=== PATIENT | male | born 1965 | race Two or more races ===

== ENCOUNTER 2017-11-28 19:21 | Emergency (ER) | payer OTHER ==
[2017-11-28 19:29] VITALS: BP 126/85; PULSE 87; TEMP 98.4; BMI 27.1
--- NOTE | 2017-11-28 19:37 | PDOC ---
History of Present Illness - General History Source: Patient, Family Exam Limitations: No Limitations - History of Present Illness Initial Comments: 11/28/17 21:08 Patient is a 52 year old male with a significant past medical history of HTN, prostate, borderline HLD, who presents to the ED with complaints of right knee pain that began x2 days ago. Patient reports experiencing gradually increased right medial knee pain that he states is increased when bending his knee. He reports taking tylenol for the pain yesterday afternoon with minimal relief, prompting him to come into the ED for further evaluation. Denies chest pain, Sob. Denies nausea, vomiting. Denies fevers, chills. Denies contact with sick individuals, out of state travelling. Denies dysuria, hematuria. Denies diarrhea, constipation. Denies head trauma, blurred vision, loss of consciousness. Denies any other symptoms. Allergies: Shrimp Social history: No smoking.No alcohol. No illicit drugs. Surgical history: None PMD: Dr. Jose Maria Gomez. <Roderick Schultz - Last Filed: 11/28/17 21:08> <Ruth Gamble - Last Filed: 11/28/17 21:29> - General Chief Complaint: Pain Stated Complaint: INNER RT KNEE PAIN Past History <Roderick Schultz - Last Filed: 11/28/17 21:08> - Past Medical History COPD: No Disorders: Yes (ENLARGED PROSTATE) HTN: Yes Hypercholesterolemia: Yes - Suicide/Smoking/Psychosocial Hx Smoking History: Never smoked Hx Alcohol Use: No Drug/Substance Use Hx: No Substance Use Type: None <Ruth Gamble - Last Filed: 11/28/17 21:29> - Past Medical History Allergies/Adverse Reactions: Allergies Allergy/AdvReac Type Severity Reaction Status Date / Time No Known Drug Allergies Allergy Verified 11/28/17 19:22 shrimp Allergy Verified 11/28/17 19:22 Home Medications: Ambulatory Orders Amlodipine Besylate 5 mg PO DAILY 11/28/17 Losartan Potassium 25 mg PO DAILY 11/28/17 Simvastatin 20 mg PO DAILY 11/28/17 Tamsulosin HCl 0.4 mg PO DAILY 11/28/17 Review of Systems - Review of Systems Able to Perform ROS?: Yes Comments:: 11/28/17 21:08 GENERAL/CONSTITUTIONAL: No fever or chills. No weakness. HEAD, EYES, EARS, NOSE AND THROAT: No change in vision. No ear pain or discharge. No sore throat. CARDIOVASCULAR: No chest pain or shortness of breath. RESPIRATORY: No cough, wheezing, or hemoptysis. GASTROINTESTINAL: No nausea, vomiting, diarrhea or constipation. GENITOURINARY: No dysuria, frequency, or change in urination. MUSCULOSKELETAL: +Right knee pain. No joint or muscle swelling No neck or back pain. SKIN: No rash NEUROLOGIC: No headache, vertigo, loss of consciousness, or change in strength/ sensation. ENDOCRINE: No increased thirst. No abnormal weight change. HEMATOLOGIC/LYMPHATIC: No anemia, easy bleeding, or history of blood clots. ALLERGIC/IMMUNOLOGIC: No hives or skin allergy. <Roderick Schultz - Last Filed: 11/28/17 21:08> *Physical Exam - Vital Signs Last Vital Signs Temp Pulse Resp BP Pulse Ox 98.4 F 87 16 126/85 96 11/28/17 19:25 11/28/17 19:25 11/28/17 19:25 11/28/17 19:25 11/28/17 19:25 - Physical Exam Comments: 11/28/17 21:08 GENERAL: Awake, alert, and fully oriented, in no acute distress HEAD: No signs of trauma EYES: PERRLA, EOMI, sclera anicteric, conjunctiva clear ENT: Auricles normal inspection, hearing grossly normal, nares patent, oropharynx clear without exudates. Moist mucosa NECK: Normal ROM, supple, no lymphadenopathy, JVD, or masses LUNGS: Breath sounds equal, clear to auscultation bilaterally. No wheezes, and no crackles HEART: Regular rate and rhythm, normal S1 and S2, no murmurs, rubs or gallops ABDOMEN: Soft, nontender, normoactive bowel sounds. No guarding, no rebound. No masses EXTREMITIES: +Varius pressure pain. +Anterior and posterior drawer test negative . +Pain with bending beyond 50 degrees. +Tenderness at medial aspect. No tenderness over patella. No bollament. No pain with valgus pressure. No injury to knee No clubbing or cyanosis. No cords, erythema, NEUROLOGICAL: Cranial nerves II through XII grossly intact. Normal speech, normal gait SKIN: Warm, Dry, normal turgor, no rashes or lesions noted. <Roderick Schultz - Last Filed: 11/28/17 21:08> - Vital Signs Last Vital Signs Temp Pulse Resp BP Pulse Ox 98.4 F 87 16 126/85 96 11/28/17 19:25 11/28/17 19:25 11/28/17 19:25 11/28/17 19:25 11/28/17 19:25 <Ruth Gamble - Last Filed: 11/28/17 21:29> ED Treatment Course - Medications Given in the ED: ED Medications Discontinued Medications Generic Name Dose Route Start Last Admin Trade Name Dora PRN Reason Stop Dose Admin Acetaminophen 1,000 mg 11/28/17 20:22 11/28/17 20:31 Tylenol - PO 11/28/17 20:23 1,000 mg ONCE ONE Administration <Roderick Schultz - Last Filed: 11/28/17 21:08> Medical Decision Making - Medical Decision Making 11/28/17 21:26 Pt has medial meniscus pain. Normal medial lateral ligaments and ACL PCL. Pt has mild swelling in the knee. Medial meniscus degeneration likely due to wear and tear. 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 Normally he strolls out of his taxi throughout his work day. Lately he has remianed seated in his car. He omes with giovani wrap and salon pas. I recommended NSAIDS with meals and f/u with ortho for eval and MRI as needed. Rest and ice and quadriceps exercises. Stable to go home. XR knee normal. <Ruth Gamble - Last Filed: 11/28/17 21:29> *DC/Admit/Observation/Transfer - Attestations Scribe Attestion: 11/28/17 21:08 Documentation prepared by Roderick Schultz, acting as medical insurance claims specialist for Ruth Gamble MD. <Roderick Schultz - Last Filed: 11/28/17 21:08> - Discharge Dispostion Decision to Admit order: No <Ruth Gamble - Last Filed: 11/28/17 21:29> Diagnosis at time of Disposition: Degeneration disease of medial meniscus - Discharge Dispostion Disposition: HOME Condition at time of disposition: Stable - Referrals Referrals: Jose Maria Gomez [Primary Care Provider] - Aguilar Soria MD [Staff Physician] - Savage Oneill MD [Staff Physician] - - Patient Instructions Printed Discharge Instructions: DI for Meniscal Tear, DI for Knee Pain, Certain Exercises May Help People with Knee Osteoarthritis, How to Apply an Elastic Wrap on Knee - Post Discharge Activity
[2017-11-28] MEDS ORDERED: ACETAMINOPHEN 500 MG TABLET (FP) PO ONE (20:22)
[2017-11-28] MEDS ORDERED: ACETAMINOPHEN 500 MG TABLET (FP) ONE (20:30)
== END 2017-11-28 20:59 | disposition home or self-care (01) ==
LOC: FER 19:21
DX: M23.303 Other meniscus derangements, unspecified medial meniscus, right knee (principal); N40.0 Benign prostatic hyperplasia without lower urinary tract symptoms; I10 Essential (primary) hypertension; E78.00 Pure hypercholesterolemia, unspecified
CPT/HCPCS: 73560-TC-RT-FY; 99282-25

== ENCOUNTER 2019-05-27 11:43 | Inpatient (IN) | payer OTHER ==
[2019-05-27 11:54] VITALS: BMI 28.7
--- NOTE | 2019-05-27 12:15 | PDOC ---
History of Present Illness - General Chief Complaint: Urinary Problem Stated Complaint: UTI Time Seen by Provider: 05/27/19 12:14 History Source: Patient Exam Limitations: No Limitations - History of Present Illness Initial Comments: 05/27/19 12:14 PCP: Dr. Jose Maria Gomez HPI: 54yo M PMH HTN, BPH, presenting with urinary incontinence for 2 days. Patient reports history of multiple UTIs in the past, most recently 2 months ago. These generally present with urinary incontinence and resolve after antibiotics from PCP. Presented to urgent care yesterday, was told to present immediately to the ER. Multiple sick contacts in the home with suspected influenza. Patient also with fevers, chills, nauseous over the past 2 days. Reports vomiting twice yesterday. Denies pain with urination, denies gross blood or foul smell. no pain. Endorses prior colonoscopy and some procedure per rectum that he cannot name. Endorses diarrhea since yesterday with multiple loose/soft BMs, denies blood or dark color. Nonproductive cough. No trauma, no back pain, no rectal pain, no numbness / tingling / weakness in LE. Took Advil two days ago, no Tylenol, nothing today. Denies chest pain, Sob. Denies out of state travelling. Denies dysuria, hematuria. Denies constipation. Denies head trauma, blurred vision, loss of consciousness. Denies any other symptoms. ALL: Shrimp PMH: Denies PSH: None SHx: No smoking.No alcohol. No illicit drugs. Past History - Travel Traveled outside of the country in the last 30 days: No Close contact w/someone who was outside of country & ill: No - Past Medical History Allergies/Adverse Reactions: Allergies Allergy/AdvReac Type Severity Reaction Status Date / Time No Known Drug Allergies Allergy Verified 05/27/19 11:54 shrimp Allergy Verified 05/27/19 11:54 Home Medications: Ambulatory Orders Amlodipine Besylate 5 mg PO DAILY 11/28/17 Losartan Potassium 25 mg PO DAILY 11/28/17 Simvastatin 20 mg PO DAILY 11/28/17 Tamsulosin HCl 0.4 mg PO DAILY 11/28/17 COPD: No Disorders: Yes (ENLARGED PROSTATE) HTN: Yes Hypercholesterolemia: Yes - Psycho Social/Smoking Cessation Hx Smoking History: Never smoked Hx Alcohol Use: No Drug/Substance Use Hx: No Substance Use Type: None Review of Systems - Review of Systems Able to Perform ROS?: Yes Is the patient limited Nepalese proficient: Yes Constitutional: Yes: Chills, Fever. No: Diaphoresis, Weakness HEENTM: No: Nose Congestion, Throat Pain Respiratory: Yes: Cough. No: Orthopnea, Shortness of Breath, Wheezing, Productive cough Cardiac (ROS): No: Chest Pain, Edema, Irregular Heart Rate, Lightheadedness, Palpitations, Syncope, Chest Tightness ABD/GI: Yes: See HPI, Diarrhea, Nausea, Vomiting. No: Constipated, Poor Appetite, Poor Fluid Intake : Yes: Frequency, Urgency. No: Burning, Dysuria, Discharge, Flank Pain, Hematuria, Pain Musculoskeletal: No: Muscle Pain, Muscle Weakness Integumentary: No: Pruritus, Rash Neurological: No: Headache, Numbness, Tingling, Weakness Psychiatric: No: Anxiety, Depression, Stressors, Change in Appetite Endocrine: No: Increased Thirst, Increased Urine Hematologic/Lymphatic: No: Anemia, Blood Clots, Easy Bleeding All Other Systems: Reviewed and Negative *Physical Exam - Vital Signs Last Vital Signs Temp Pulse Resp BP Pulse Ox 103 F H 115 H 16 142/100 100 05/27/19 11:52 05/27/19 11:52 05/27/19 11:52 05/27/19 11:52 05/27/19 11:52 - Physical Exam 05/27/19 13:59 Vitals reviewed, febrile to 103, tachycardia to 110s GEN: Well appearing, appears stated age, NAD, comfortable. AAOx3. HEENT: NCAT, EOMI, PERRL. No facial asymmetry. Moist mucous membranes. Normal voice. Trachea midline. CV: RRR, S1/S2, no murmurs / rubs / gallops appreciated. LUNG: CTAB, normal work of breathing. No wheezes, rales, rhonchi. No cough. Speaking full sentences. GI: Soft, NTND, +BS, no guarding, no rebound. No masses. Neg CVAT b/l. EXTREMITIES: 2+ distal pulses. No LE edema. No obvious deformities of all extremities. SKIN: Warm, dry, no rashes appreciated, non-jaundiced. PSYCH: Normal mood and affect. Cooperative and appropriate. NEURO: CN grossly intact. Moving all extremities well. Normal strength and sensation grossly. ED Treatment Course - LABORATORY CBC & Chemistry Diagram: 05/27/19 12:35 05/27/19 12:35 Medical Decision Making - Medical Decision Making 05/27/19 12:14 54yo M PMH HTN, BPH, presenting with urinary incontinence for 2 days. History notable for prior UTIs with similar presentation. Vitals concerning for fever, tachycardia. DDX: Urosepsis, less likely prostatitis, colitis, superimposed influenza, r/o other septic sources. - Sepsis order set - Influenza Swab - 1g Ofirmev 05/27/19 12:52 - EK, NSR, normla axis, normal intervals, QTc 430, no ST changes 05/27/19 14:00 - Leukocytosis 24.4, CBC / CMP otherwise unremarkable - UA with UTI, trace hematuria - Influenza B positive 05/27/19 14:21 - Call placed to Dr. Gomez, hold 15 minutes, no answer - Ceftriaxone 1g IV for UTI coverage - Tamiflu 75 mg Dispo: Admit Med/Surg for presumed urosepsis Discharge - Discharge Information Problems reviewed: Yes Clinical Impression/Diagnosis: Influenza B Sepsis Qualifiers: Sepsis type: sepsis due to unspecified organism Sepsis acute organ dysfunction status: unspecified Qualified Code(s): A41.9 - Sepsis, unspecified organism UTI (urinary tract infection) Qualifiers: Urinary tract infection type: site unspecified Hematuria presence: with hematuria Qualified Code(s): N39.0 - Urinary tract infection, site not specified Condition: Guarded - Admission Yes - Follow up/Referral Referrals: Jose Maria Gomez [Primary Care Provider] - - Patient Discharge Instructions - Post Discharge Activity
[2019-05-27] MEDS ORDERED: SODIUM CHLORIDE 2,803 ML IV ONE (12:27)
[2019-05-27] MEDS ORDERED: ACETAMINOPHEN 1000 MG/100 ML VIAL (NON FORMULARY) IVPB ONE (12:48)
[2019-05-27 13:03] LABS: VENOUS PC02 45.5 mmHg (38-52); VENOUS PH 7.43 (7.31-7.41)
[2019-05-27 13:04] LABS: BASO % 0.4 % (0-2.0); HEMATOCRIT 43.5 % (35.4-49); HEMOGLOBIN 14.5 GM/dL (11.7-16.9); LYMPH % 8.2 % (8-40); MCH 29.1 pg (25.7-33.7); MCHC 33.4 g/dl (32.0-35.9); MEAN CELL VOLUME 87.3 fl (80-96); MEAN PLT VOLUME 10.1 fl (7.5-11.1); MONO % 10.7 % (3.8-10.2); NEUT % 80.7 % (42.8-82.8); PLATELET COUNT 204 K/MM3 (134-434); RBC 4.98 M/mm3 (4.00-5.60); RDW 13.6 % (11.9-15.9); WHITE BLOOD COUNT 24.4 K/mm3 (4.0-10.0)
[2019-05-27 13:05] LABS: VENOUS PO2 < 49 mmHg (28-48)
[2019-05-27] MEDS ORDERED: ACETAMINOPHEN INJECTION 100 ML IVPB ONE (13:10)
[2019-05-27 13:37] LABS: ALBUMIN 3.5 g/dl (3.4-5.0); ALK PHOS 65 U/L (45-117); ANION GAP 7 MMOL/L (8-16); BILIRUBIN,TOTAL 1.1 mg/dL (0.2-1); CALCIUM 8.3 mg/dL (8.5-10.1); CHLORIDE 100 mmol/L (98-107); CO2 28 mmol/L (21-32); CREATININE 0.9 mg/dL (0.55-1.3); GLUCOSE,RANDOM 121 mg/dL (74-106); POTASSIUM 3.6 mmol/L (3.5-5.1); SGOT/AST 11 U/L (15-37); SGPT/ALT 22 U/L (13-61); SODIUM 134 mmol/L (136-145); TOT PROT 7.5 g/dl (6.4-8.2)
[2019-05-27 13:37] LABS: EPI CELLS 3.5 /HPF (0-5/HPF); HYALINE CASTS 2 /lpf (0-8); PH,URINE >= 9.0 (5.0-8.0); URINE APPEARANCE CLEAR; URINE BACTERIA 1022.8 /hpf (NEGATIVE); URINE BILIRUBIN NEGATIVE (NEGATIVE); URINE COLOR YELLOW; URINE GLUCOSE (UA) NEGATIVE (NEGATIVE); URINE KETONE NEGATIVE (NEGATIVE); URINE LEUK ESTERASE NEGATIVE (NEGATIVE); URINE NITRITE NEGATIVE (NEGATIVE); URINE PROTEIN 3+ (NEGATIVE); URINE RBC 7 /hpf (0-4); URINE WBC 9 /hpf (0-5)
--- NOTE | 2019-05-27 13:54 | PDOC ---
Documentation entered by Terra Markham SCRIBE, acting as scribe for Paxton Sherman MD. Paxton Sherman MD: This documentation has been prepared by the Shahrzad gomez Nirvannie, SCRIBE, under my direction and personally reviewed by me in its entirety. I confirm that the documentation accurately reflects all work, treatment, procedures, and medical decision making performed by me. Attending Attestation - Resident Resident Name: MichaelMike - ED Attending Attestation I have performed the following: I have examined & evaluated the patient, The case was reviewed & discussed with the resident, I agree w/resident's findings & plan, Exceptions are as noted - HPI HPI: 05/27/19 13:16 The patient is a 54 year old male, with a significant past medical history of htn, bph, hld, and multiple UTIs (last 2mo ago) who presents to the emergency department with 2 days of urinary incontinence and loose stool described as multiple loose/soft BMs. He notes associated 2 episodes of emesis yesterday. Patient notes to have been evaluated by urgent care yesterday, at which time he was advised to report to the ED for further evaluation.l Patient does endorse a mild cough that is nonproductive denies any body aches, nasal congestion, sore throat, He does note that multiple people had flulike symptom his family recently. He denies any recent chest pain or shortness of breath. He denies any recent dysuria or hematuria. The patient denies any back pain Allergies: Shrimp. Past surgical history: None reported. Social History: Nonsmoker. Denies EtOH use and recreational drug use. Primary Care Physician: Dr. Jose Maria Gomez - Physicial Exam PE: 05/27/19 13:50 GENERAL: The patient is awake, alert, and fully oriented, Nontoxic - in no acute distress. HEAD: Normocephalic, atraumatic. EYES: extraocular movements intact, sclera anicteric, conjunctiva clear. ENT: Normal voice, Moist mucous membranes. NECK: Normal range of motion, supple LUNGS: Breath sounds equal, clear to auscultation bilaterally. No wheezes, no rhonchi, no rales. HEART: RTachycardic ABDOMEN: Soft, nontender, No guarding, no rebound. No CVA tenderness EXTREMITIES: Normal range of motion, no edema. NEUROLOGICAL: No facial assymetry, Normal speech, Moving all 4 extremities spontaneously and symmetrically PSYCH: Normal mood, normal affect. SKIN: Hot to the touch - Medical Decision Making 05/27/19 12:44 Assessment and plan consider possible UTI vs influenza No associated back pain, trauma I suspect his incontinence may be urge incontinence. Patient noted be febrile tachycardic, sepsis order set was obtained 05/27/19 13:50 Patient's blood work was reviewed noted for leukocytosis cytosis of 24 use a noted for significant amount of bacteria will treat with antibiotics, influenza influenza positive - will treat with tamiflu in lightof leukocyotsis to 24 will admit for further management Heart Score/ECG Review - ECG Impressions Comment:: 05/27/19 13:52 Twelve-lead EKG was performed and reviewed by me. Rate of [address] changes suggestive of acute ischemia Sinus tachycardia
[2019-05-27 14:22] LABS: ANISOCYTOSIS 0; MACROCYTOSIS 0; PLATELET ESTIMATE NORMAL
[2019-05-27] MEDS ORDERED: CEFTRIAXONE 1 GM in DEXTROSE 5%-WATER - 100 ML IVPB ONE (14:23)
[2019-05-27] MEDS ORDERED: OSELTAMIVIR PHOSPHATE 75 MG CAPSULE PO ONE (14:24)
[2019-05-27] MEDS ORDERED: OSELTAMIVIR PHOSPHATE 75 MG CAPSULE ONE ×2 (15:27→22:43)
[2019-05-27] MEDS ORDERED: CEFTRIAXONE 1 GM/50 ML BAG ONE (15:28)
--- NOTE | 2019-05-27 16:11 | HP ---
CHIEF COMPLAINT: fever, chills, nausea/vomiting PCP: Dr. Colon HISTORY OF PRESENT ILLNESS: Patient is a 54 year old male with a significant past medical history of hypertension, BPH who presents to the ED today with urinary frequency for two days, fever, chills and nausea/vomiting. Patient had multiple sick contact at home with fever and chills suspicous for the flu. He went to urgent care and was advised to go to the ED after he reported his symptoms. He denies any pain with urination, denies gross blood or foul smell of his urine. He reports diarrhea that began yesterday with multiple loose stools. He denies any rectal bleed or black stools. He reports a non productive cough and general malaise. In the ED he was having rigors He denies any chest pain, back pain or weakness. He denies hematuria, blurred vision, loss of consciousness. Denies any other symptoms. He was found to be positive for influenza and presents with an elevated WBC of 24.4. Noted to have a + UA. Urine culture and blood cultures are pending. Patient continues to have malaise and rigors. ID has been consulted. ER course was notable for: (1) lactic acid 1.4 (2) wbc 24.4 (3) three episodes of non bili/non bloody vomiting in the ED (4) flu + (5) ceftriaxone 1grm Recent Travel: PAST MEDICAL HISTORY: hypertension, BPH PAST SURGICAL HISTORY: Social History: Smoking: none Alcohol: none Drugs: none Allergies No Known Drug Allergies Allergy (Verified 05/27/19 11:54) shrimp Allergy (Verified 05/27/19 11:54) HOME MEDICATIONS: Home Medications Medication Instructions Recorded Amlodipine Besylate 5 mg PO DAILY 11/28/17 Losartan Potassium 25 mg PO DAILY 11/28/17 Simvastatin 20 mg PO DAILY 11/28/17 Tamsulosin HCl 0.4 mg PO DAILY 11/28/17 REVIEW OF SYSTEMS CONSTITUTIONAL: present: fever, chills, diaphoresis, generalized weakness, malaise, loss of appetite HEENT: Absent: rhinorrhea, nasal congestion, throat pain, throat swelling, difficulty swallowing, mouth swelling, ear pain, eye pain, visual changes CARDIOVASCULAR: Absent: chest pain, syncope, palpitations, irregular heart rate, lightheadedness , peripheral edema RESPIRATORY: present: cough GASTROINTESTINAL: present: nausea, vomiting GENITOURINARY: Absent: dysuria, frequency, urgency, hesitancy, hematuria, flank pain, genital pain MUSCULOSKELETAL: Absent: myalgia, arthralgia, joint swelling, back pain, neck pain SKIN: Absent: rash, itching, pallor HEMATOLOGIC/IMMUNOLOGIC: Absent: easy bleeding, easy bruising, lymphadenopathy, frequent infections ENDOCRINE: Absent: unexplained weight gain, unexplained weight loss, heat intolerance, cold intolerance NEUROLOGIC: Absent: headache, focal weakness or paresthesias, dizziness, unsteady gait, seizure, mental status changes, bladder or bowel incontinence PSYCHIATRIC: Absent: anxiety, depression, suicidal or homicidal ideation, hallucinations. PHYSICAL EXAMINATION Vital Signs - 24 hr 05/27/19 11:52 Temperature 103 F H Pulse Rate 115 H Respiratory 16 Rate Blood Pressure 142/100 O2 Sat by Pulse 100 Oximetry (%) GENERAL: Awake, alert, and fully oriented, with rigors and general malaise. HEAD: Normal with no signs of trauma. EYES: Pupils equal, round and reactive to light, extraocular movements intact, sclera anicteric, conjunctiva clear. No lid lag. EARS, NOSE, THROAT: Ears normal, nares patent, oropharynx clear without exudates. Moist mucous membranes. NECK: Normal range of motion, supple without lymphadenopathy, JVD, or masses. LUNGS: Breath sounds equal, clear to auscultation bilaterally. No wheezes HEART: Regular rate and rhythm, ABDOMEN: Soft, nontender, not distended, normoactive bowel sounds, no guarding, no rebound, no masses. No hepatomegaly or splenomegaly. MUSCULOSKELETAL: Normal range of motion at all joints. No bony deformities or tenderness. No CVA tenderness. UPPER EXTREMITIES: No peripheral edema. LOWER EXTREMITIES: No peripheral edema. NEUROLOGICAL: Normal speech. Normal gait. PSYCHIATRIC: Cooperative. Good eye contact. Appropriate mood and affect. SKIN: Warm, dry, normal turgor, no rashes or lesions noted, normal capillary refill. Laboratory Results - last 24 hr 05/27/19 05/27/19 05/27/19 12:35 12:35 12:35 WBC 24.4 H RBC 4.98 Hgb 14.5 Hct 43.5 MCV 87.3 MCH 29.1 MCHC 33.4 RDW 13.6 Plt Count 204 MPV 10.1 Absolute Neuts (auto) 19.7 H Neutrophils % 80.7 Neutrophils % (Manual) 77.8 Band Neutrophils % 5.0 Lymphocytes % 8.2 Lymphocytes % (Manual) 7.1 L Monocytes % 10.7 H Monocytes % (Manual) 7 Eosinophils % 0.0 Eosinophils % (Manual) 0.0 Basophils % 0.4 Basophils % (Manual) 0.0 Myelocytes % (Man) 0 Promyelocytes % (Man) 0 Blast Cells % (Manual) 0 Nucleated RBC % 0 Metamyelocytes 0 Hypochromia 0 Platelet Estimate Normal Polychromasia 0 Poikilocytosis 0 Anisocytosis 0 Microcytosis 0 Macrocytosis 0 VBG pH POC VBG pCO2 POC VBG pO2 VBG HCO3 VBG O2 Sat ([place]andy) VBG Base Excess Sodium 134 L Potassium 3.6 Chloride 100 Carbon Dioxide 28 Anion Gap 7 L BUN 8.0 Creatinine 0.9 Est GFR (CKD-EPI)AfAm 111.05 Est GFR (CKD-EPI)NonAf 95.81 Random Glucose 121 H Lactic Acid 1.4 Calcium 8.3 L Total Bilirubin 1.1 H AST 11 L ALT 22 Alkaline Phosphatase 65 Troponin I < 0.02 Total Protein 7.5 Albumin 3.5 Urine Color Urine Appearance Urine pH Ur Specific [place] Urine Protein Urine Glucose (UA) Urine Ketones Urine Blood Urine Nitrite Urine Bilirubin Urine Urobilinogen Ur Leukocyte Esterase Urine WBC (Auto) Urine RBC (Auto) Urine Casts (Auto) U Epithel Cells (Auto) Urine Bacteria (Auto) Influenza A (Rapid) Influenza B (Rapid) 05/27/19 05/27/19 05/27/19 12:35 13:06 13:06 WBC RBC Hgb Hct MCV MCH MCHC RDW Plt Count MPV Absolute Neuts (auto) Neutrophils % Neutrophils % (Manual) Band Neutrophils % Lymphocytes % Lymphocytes % (Manual) Monocytes % Monocytes % (Manual) Eosinophils % Eosinophils % (Manual) Basophils % Basophils % (Manual) Myelocytes % (Man) Promyelocytes % (Man) Blast Cells % (Manual) Nucleated RBC % Metamyelocytes Hypochromia Platelet Estimate Polychromasia Poikilocytosis Anisocytosis Microcytosis Macrocytosis VBG pH 7.43 H POC VBG pCO2 45.5 POC VBG pO2 < 49 H VBG HCO3 29.9 H VBG O2 Sat ([place]andy) 78.5 VBG Base Excess 5.2 H Sodium Potassium Chloride Carbon Dioxide Anion Gap BUN Creatinine Est GFR (CKD-EPI)AfAm Est GFR (CKD-EPI)NonAf Random Glucose Lactic Acid Calcium Total Bilirubin AST ALT Alkaline Phosphatase Troponin I Total Protein Albumin Urine Color Yellow Urine Appearance Clear Urine pH >= 9.0 H Ur Specific [place] 1.018 Urine Protein 3+ H Urine Glucose (UA) Negative Urine Ketones Negative Urine Blood Trace Urine Nitrite Negative Urine Bilirubin Negative Urine Urobilinogen 1.0 Ur Leukocyte Esterase Negative Urine WBC (Auto) 9 Urine RBC (Auto) 7 Urine Casts (Auto) 2 U Epithel Cells (Auto) 3.5 Urine Bacteria (Auto) 1022.8 Influenza A (Rapid) Negative Influenza B (Rapid) Positive A ASSESSMENT/PLAN: Problem List - Problem (1) Sepsis Assessment/Plan: patient presents with fever 103, elevated WBC and rigors. His mentation is at baseline. He is having episodes of non bilious non bloody emesis in the ED. Blood and urine cultures collected and pending. Lactic acid within normal limits. Chest xray negative for acute process Also found to have + UA and influenza B positive Start on emperic ceftriaxone pending cultures ID consulted for rigors and elevated WBC Code(s): A41.9 - SEPSIS, UNSPECIFIED ORGANISM Qualifiers: Sepsis type: sepsis due to unspecified organism Sepsis acute organ dysfunction status: unspecified Qualified Code(s): A41.9 - Sepsis, unspecified organism (2) Influenza B Assessment/Plan: started on tamiflu isolation precautions Code(s): J10.1 - FLU DUE TO OTH IDENT INFLUENZA VIRUS W OTH RESP MANIFEST (3) UTI (urinary tract infection) Assessment/Plan: + UA, pending urine cultures on ceftriaxone Code(s): N39.0 - URINARY TRACT INFECTION, SITE NOT SPECIFIED Qualifiers: Urinary tract infection type: site unspecified Hematuria presence: with hematuria Qualified Code(s): N39.0 - Urinary tract infection, site not specified; R31.9 - Hematuria, unspecified (4) Degeneration disease of medial meniscus Code(s): M23.305 - OTHER MENISCUS DERANGEMENTS, UNSP MEDIAL MENISCUS, UNSP KNEE (5) DVT prophylaxis Assessment/Plan: heparin bid full code Code(s): Z29.9 - ENCOUNTER FOR PROPHYLACTIC MEASURES, UNSPECIFIED (6) Prophylactic measure Assessment/Plan: fen ivf @ 100cc/hr until can tolerate meals heparin bid full code Code(s): Z29.9 - ENCOUNTER FOR PROPHYLACTIC MEASURES, UNSPECIFIED Visit type - Emergency Visit Emergency Visit: Yes ED Registration Date: 05/27/19 Care time: The patient presented to the Emergency Department on the above date and was hospitalized for further evaluation of their emergent condition. - New Patient This patient is new to me today: Yes Date on this admission: 05/28/19 - Critical Care Critical Care patient: No
[2019-05-27] MEDS: SODIUM CHLORIDE 1,000 ML IV SCH (16:27)
[2019-05-27] MEDS ORDERED: ONDANSETRON 4 MG/2 ML VIAL IVPUSH PRN (18:18)
[2019-05-27] MEDS: PANTOPRAZOLE SODIUM 40 MG VIAL IVPUSH SCH (18:30)
[2019-05-27] MEDS ORDERED: ACETAMINOPHEN 325 MG TABLET (FP) ONE (22:43)
[2019-05-27] MEDS ORDERED: ATORVASTATIN CA 10 MG TABLET (FP) ONE (22:43)
[2019-05-27] MEDS: OSELTAMIVIR PHOSPHATE 75 MG CAPSULE PO SCH (22:47)
[2019-05-27] MEDS: ACETAMINOPHEN 325 MG TABLET (FP) PO PRN (22:47)
[2019-05-27] MEDS: ATORVASTATIN CA 10 MG TABLET (FP) PO SCH (22:47)
[2019-05-28] MEDS: TAMSULOSIN HCL 0.4 MG CAP PO SCH (08:31)
[2019-05-28] MEDS ORDERED: PATIENT'S OWN MEDICATION (NON-FORMULARY) (Simvastatin [Simvastatin] 20 MG) PO SCH (10:00)
[2019-05-28] MEDS ORDERED: CEFTRIAXONE 1 GM/50 ML BAG ONE (10:16)
[2019-05-28] MEDS: LOSARTAN POTASSIUM 25 MG TABLET PO SCH (10:34)
[2019-05-28] MEDS: CEFTRIAXONE 1 GM in DEXTROSE 5%-WATER - 50 ML IVPB SCH (10:34)
[2019-05-28] MEDS: PANTOPRAZOLE SODIUM 40 MG VIAL IVPUSH SCH (10:34)
[2019-05-28] MEDS: OSELTAMIVIR PHOSPHATE 75 MG CAPSULE PO SCH ×2 (10:34→22:21)
[2019-05-28] MEDS: amLODIPine BESYLATE 5 MG TABLET (FP) PO SCH (10:34)
[2019-05-28 10:44] LABS: HEMATOCRIT 42.7 % (35.4-49); HEMOGLOBIN 14.2 GM/dL (11.7-16.9); MCH 29.5 pg (25.7-33.7); MCHC 33.3 g/dl (32.0-35.9); MEAN CELL VOLUME 88.7 fl (80-96); MEAN PLT VOLUME 9.2 fl (7.5-11.1); PLATELET COUNT 178 K/MM3 (134-434); RBC 4.82 M/mm3 (4.00-5.60); RDW 13.8 % (11.9-15.9)
[2019-05-28 10:58] LABS: INR 1.33 (0.83-1.09); PROTHROMBIN TIME (PATIENT) 15.7 SEC (9.7-13.0)
[2019-05-28 11:08] LABS: BILIRUBIN,TOTAL 1.3 mg/dL (0.2-1); CALCIUM 8.1 mg/dL (8.5-10.1); CREATININE 0.8 mg/dL (0.55-1.3); MAGNESIUM 2.3 mg/dL (1.8-2.4); POTASSIUM 4.1 mmol/L (3.5-5.1); TOT PROT 6.7 g/dl (6.4-8.2)
--- NOTE | 2019-05-28 13:08 | CON.ID ---
Consult - Alcohol/Substance Use Hx Alcohol Use: No - Smoking History Smoking history: Never smoked Home Medications - Allergies Allergies/Adverse Reactions: Allergies Allergy/AdvReac Type Severity Reaction Status Date / Time No Known Drug Allergies Allergy Verified 05/27/19 11:54 shrimp Allergy Verified 05/27/19 11:54 - Home Medications Home Medications: Ambulatory Orders Amlodipine Besylate 5 mg PO DAILY 11/28/17 Losartan Potassium 25 mg PO DAILY 11/28/17 Simvastatin 20 mg PO DAILY 11/28/17 Tamsulosin HCl 0.4 mg PO DAILY 11/28/17 Physical Exam Vital Signs: Vital Signs Temperature 98.7 F 05/28/19 10:57 Pulse Rate 90 05/28/19 10:57 Respiratory Rate 18 05/28/19 10:57 Blood Pressure 144/94 05/28/19 10:57 O2 Sat by Pulse Oximetry (%) 97 05/28/19 07:41 Labs: CBC, BMP 05/28/19 10:34 05/28/19 10:34
[2019-05-28] MEDS: PIPERACILLIN/TAZOB 3.375 GM 3.375 GM in DEXTROSE 5%-WATER - 50 ML IVPB SCH ×2 (13:16→17:26)
[2019-05-28] MEDS ORDERED: PIPERACILLIN/TAZOB 3.375 GM 3.375 GM/50 ML BAG IVPB ONE (13:19)
--- NOTE | 2019-05-28 14:33 | EKG ---
Test Reason : Blood Pressure : / mmHG Vent. Rate : 114 BPM Atrial Rate : 114 BPM P-R Int : 142 ms QRS Dur : 088 ms QT Int : 312 ms P-R-T Axes : 061 -19 033 degrees QTc Int : 430 ms SINUS TACHYCARDIA OTHERWISE NORMAL ECG Confirmed by MD NANETTE, AIDE ([id number]) on 05/28/2019 2:33:24 PM Referred By: Confirmed By:AIDE FITZPATRICK MD
[2019-05-28] MEDS: SODIUM CHLORIDE 1,000 ML IV SCH (16:25)
[2019-05-28] MEDS: ACETAMINOPHEN 325 MG TABLET (FP) PO PRN (16:25)
[2019-05-28] MEDS ORDERED: PIPERACILLIN/TAZOBACTAM 3.375 GM VIAL IVPB ONE ×2 (17:18→17:20)
[2019-05-28] MEDS ORDERED: DEXTROSE 5%-WATER - 50 ML IVPB ONE ×2 (17:18→17:21)
--- NOTE | 2019-05-28 18:10 | PN ---
Physical Exam: SUBJECTIVE: Patient seen and examined at the bedside. Ambulating around room in the ED awaiting bed assignment. He denies any shortness of breath or any further rigors. No vomiting. His brought him food and he tolerated the outside food without vomiting. OBJECTIVE: Patient is a 54 year old male with a significant past medical history of hypertension, BPH who presents to the ED on 05/28/2019 with urinary frequency for two days, fever, chills and nausea/vomiting. Patient had multiple sick contact at home with fever and chills suspicious for the flu. He went to urgent care and was advised to go to the ED after he reported his symptoms. He was found to be positive for influenza and presents with an elevated WBC of 24.4. Noted to have a + UA. Urine culture and blood cultures are pending. He is being admitted for possible urosepsis and +influenza B. Period Temp Pulse Resp BP Sys/Stapleton Pulse Ox Last 24 Hr 98.0 F-98.7 F 88-104 18-18 118-145/71-96 97-98 GENERAL: Awake, alert, and fully oriented, with rigors and general malaise. HEAD: Normal with no signs of trauma. EYES: Pupils equal, round and reactive to light, extraocular movements intact, sclera anicteric, conjunctiva clear. No lid lag. EARS, NOSE, THROAT: Ears normal, nares patent, oropharynx clear without exudates. Moist mucous membranes. NECK: Normal range of motion, supple without lymphadenopathy, JVD, or masses. LUNGS: Breath sounds equal, clear to auscultation bilaterally. No wheezes HEART: Regular rate and rhythm, ABDOMEN: Soft, nontender, not distended, normoactive bowel sounds, no guarding, no rebound, no masses. No hepatomegaly or splenomegaly. MUSCULOSKELETAL: Normal range of motion at all joints. No bony deformities or tenderness. No CVA tenderness. UPPER EXTREMITIES: No peripheral edema. LOWER EXTREMITIES: No peripheral edema. NEUROLOGICAL: Normal speech. Normal gait. PSYCHIATRIC: Cooperative. Good eye contact. Appropriate mood and affect. SKIN: Warm, dry, normal turgor, no rashes or lesions noted, normal capillary refill. Laboratory Results - last 24 hr 05/27/19 05/28/19 05/28/19 20:00 10:34 10:34 WBC 22.0 H RBC 4.82 Hgb 14.2 Hct 42.7 MCV 88.7 MCH 29.5 MCHC 33.3 RDW 13.8 Plt Count 178 MPV 9.2 PT with INR 15.70 H INR 1.33 H Sodium Potassium Chloride Carbon Dioxide Anion Gap BUN Creatinine Est GFR (CKD-EPI)AfAm Est GFR (CKD-EPI)NonAf Random Glucose Lactic Acid 0.8 Calcium Magnesium Total Bilirubin AST ALT Alkaline Phosphatase Total Protein Albumin 05/28/19 10:34 WBC RBC Hgb Hct MCV MCH MCHC RDW Plt Count MPV PT with INR INR Sodium 138 Potassium 4.1 Chloride 104 Carbon Dioxide 30 Anion Gap 4 L BUN 9.0 Creatinine 0.8 Est GFR (CKD-EPI)AfAm 116.56 Est GFR (CKD-EPI)NonAf 100.57 Random Glucose 112 H Lactic Acid Calcium 8.1 L Magnesium 2.3 Total Bilirubin 1.3 H AST 13 L ALT 20 Alkaline Phosphatase 58 Total Protein 6.7 Albumin 3.0 L Active Medications Generic Name Dose Route Start Last Admin Trade Name Freq PRN Reason Stop Dose Admin Acetaminophen 650 mg 05/27/19 16:11 05/28/19 16:25 Tylenol - PO 650 mg Q6H PRN Administration FEVER Amlodipine Besylate 5 mg 05/28/19 10:00 05/28/19 10:34 Norvasc - PO 5 mg DAILY ROSA Administration Atorvastatin Calcium 10 mg 05/27/19 22:00 05/27/19 22:47 Lipitor - PO 10 mg HS ROSA Administration Heparin Sodium (Porcine) 5,000 unit 05/28/19 22:00 Heparin - SQ BID ROSA Ceftriaxone Sodium 1 gm/ 50 mls @ 100 mls/hr 05/28/19 10:00 05/28/19 10:34 Dextrose IVPB 100 mls/hr DAILY ROSA Administration Piperacillin Sod/Tazobactam 50 mls @ 100 mls/hr 05/28/19 13:15 05/28/19 17:26 Sod 3.375 gm/ Dextrose IVPB 100 mls/hr Q8H-IV ROSA Administration Protocol Losartan Potassium 25 mg 05/28/19 10:00 05/28/19 10:34 Cozaar - PO 25 mg DAILY ROSA Administration Ondansetron HCl 4 mg 05/27/19 18:18 05/27/19 18:30 Zofran Injection IVPUSH 4 mg Q6H PRN Administration NAUSEA Oseltamivir Phosphate 75 mg 05/27/19 22:00 05/28/19 10:34 Tamiflu - PO 06/01/19 21:59 75 mg BID ROSA Administration Pantoprazole Sodium 40 mg 05/27/19 18:30 05/28/19 10:34 Protonix Iv IVPUSH 40 mg DAILY ROSA Administration Tamsulosin HCl 0.4 mg 05/28/19 08:30 05/28/19 08:31 Flomax - PO 0.4 mg DAILY@0830 ROSA Administration ASSESSMENT/PLAN: Problem List - Problems (1) Sepsis Assessment/Plan: patient presents with fever 103, elevated WBC and rigors. His mentation is at baseline and his fever curve is now improving. rigors have resolved. Blood and urine cultures collected and pending. Lactic acid within normal limits. Chest xray negative for acute process Also found to have + UA and influenza B positive Seen by ID and started on zosyn pending cultures. Code(s): A41.9 - SEPSIS, UNSPECIFIED ORGANISM Qualifiers: Sepsis type: sepsis due to unspecified organism Sepsis acute organ dysfunction status: unspecified Qualified Code(s): A41.9 - Sepsis, unspecified organism (2) Influenza B Assessment/Plan: started on tamiflu isolation precautions Code(s): J10.1 - FLU DUE TO OTH IDENT INFLUENZA VIRUS W OTH RESP MANIFEST (3) UTI (urinary tract infection) Assessment/Plan: + UA, pending urine cultures on ceftriaxone Code(s): N39.0 - URINARY TRACT INFECTION, SITE NOT SPECIFIED Qualifiers: Urinary tract infection type: site unspecified Hematuria presence: with hematuria Qualified Code(s): N39.0 - Urinary tract infection, site not specified; R31.9 - Hematuria, unspecified (4) Degeneration disease of medial meniscus Code(s): M23.305 - OTHER MENISCUS DERANGEMENTS, UNSP MEDIAL MENISCUS, UNSP KNEE (5) DVT prophylaxis Assessment/Plan: heparin bid full code Code(s): Z29.9 - ENCOUNTER FOR PROPHYLACTIC MEASURES, UNSPECIFIED (6) Prophylactic measure Assessment/Plan: fen low salt diet heparin bid full code Code(s): Z29.9 - ENCOUNTER FOR PROPHYLACTIC MEASURES, UNSPECIFIED Visit type - Emergency Visit Emergency Visit: Yes ED Registration Date: 05/27/19 Care time: The patient presented to the Emergency Department on the above date and was hospitalized for further evaluation of their emergent condition. - New Patient This patient is new to me today: No - Critical Care Critical Care patient: No - Discharge Referral Referred to [facility] No
[2019-05-28] MEDS: ATORVASTATIN CA 10 MG TABLET (FP) PO SCH (22:20)
[2019-05-28] MEDS: HEPARIN NA (PORCINE) 5,000 UNITS/ML 1ML VIAL SQ SCH (22:21)
[2019-05-29] MEDS: OSELTAMIVIR PHOSPHATE 75 MG CAPSULE PO SCH ×3 (00:43→22:09)
[2019-05-29] MEDS ORDERED: PIPERACILLIN/TAZOBACTAM 3.375 GM VIAL IVPB ONE ×3 (02:34→16:29)
[2019-05-29] MEDS ORDERED: DEXTROSE 5%-WATER - 50 ML IVPB ONE ×4 (02:34→16:29)
[2019-05-29] MEDS: PIPERACILLIN/TAZOB 3.375 GM 3.375 GM in DEXTROSE 5%-WATER - 50 ML IVPB SCH ×3 (02:56→16:58)
[2019-05-29] MEDS: ACETAMINOPHEN 325 MG TABLET (FP) PO PRN ×3 (04:24→23:28)
[2019-05-29] MEDS ORDERED: PT OWN MED DRAWER 7, Y5N ONE ×2 (08:23→21:35)
[2019-05-29] MEDS ORDERED: cefTRIAXone SODIUM 1 GM VIAL ONE (08:23)
[2019-05-29] MEDS: TAMSULOSIN HCL 0.4 MG CAP PO SCH (09:06)
[2019-05-29] MEDS: amLODIPine BESYLATE 5 MG TABLET (FP) PO SCH (09:06)
[2019-05-29] MEDS: LOSARTAN POTASSIUM 25 MG TABLET PO SCH (09:06)
[2019-05-29] MEDS: HEPARIN NA (PORCINE) 5,000 UNITS/ML 1ML VIAL SQ SCH ×2 (09:07→22:09)
[2019-05-29] MEDS: CEFTRIAXONE 1 GM in DEXTROSE 5%-WATER - 50 ML IVPB SCH (09:10)
[2019-05-29] MEDS: PANTOPRAZOLE SODIUM 40 MG VIAL IVPUSH SCH (09:10)
--- NOTE | 2019-05-29 10:35 | PN ---
Progress Note, Physician History of Present Illness: still with fevers says dribbling urine - Current Medication List Current Medications: Active Medications Acetaminophen (Tylenol -) 650 mg PO Q6H PRN PRN Reason: FEVER Last Admin: 05/29/19 04:24 Dose: 650 mg Amlodipine Besylate (Norvasc -) 5 mg PO DAILY [facility] Last Admin: 05/29/19 09:06 Dose: 5 mg Atorvastatin Calcium (Lipitor -) 10 mg PO HS [facility] Last Admin: 05/28/19 22:20 Dose: 10 mg Heparin Sodium (Porcine) (Heparin -) 5,000 unit SQ BID [facility] Last Admin: 05/29/19 09:07 Dose: 5,000 unit Ceftriaxone Sodium 1 gm/ (Dextrose) 50 mls @ 100 mls/hr IVPB DAILY [facility] Last Admin: 05/29/19 09:10 Dose: 100 mls/hr Piperacillin Sod/Tazobactam (Sod 3.375 gm/ Dextrose) 50 mls @ 100 mls/hr IVPB Q8H-IV ROSA; Protocol Last Admin: 05/29/19 10:27 Dose: 100 mls/hr Losartan Potassium (Cozaar -) 25 mg PO DAILY [facility] Last Admin: 05/29/19 09:06 Dose: 25 mg Ondansetron HCl (Zofran Injection) 4 mg IVPUSH Q6H PRN PRN Reason: NAUSEA Last Admin: 05/27/19 18:30 Dose: 4 mg Oseltamivir Phosphate (Tamiflu -) 75 mg PO BID [facility] Stop: 06/01/19 21:59 Last Admin: 05/29/19 09:06 Dose: 75 mg Pantoprazole Sodium (Protonix Iv) 40 mg IVPUSH DAILY [facility] Last Admin: 05/29/19 09:10 Dose: 40 mg Tamsulosin HCl (Flomax -) 0.4 mg PO DAILY@0830 [facility] Last Admin: 05/29/19 09:06 Dose: 0.4 mg - Objective Vital Signs: Vital Signs Temperature 97.9 F 05/29/19 07:54 Pulse Rate 98 H 05/29/19 07:54 Respiratory Rate 14 05/29/19 07:54 Blood Pressure 155/95 05/29/19 07:54 O2 Sat by Pulse Oximetry (%) 98 05/28/19 16:58 Constitutional: Yes: Calm, Mild Distress Cardiovascular: Yes: S1, S2 Respiratory: Yes: Regular, CTA Bilaterally Gastrointestinal: Yes: Normal Bowel Sounds, Soft Musculoskeletal: Yes: WNL Extremities: Yes: Other Neurological: Yes: Alert, Oriented Psychiatric: Yes: Alert, Oriented Labs: CBC, BMP 05/28/19 10:34 05/28/19 10:34 INR, PTT INR 1.33 (0.83-1.09) H 05/28/19 10:34 Assessment/Plan Problem List - Problem (1) Sepsis Code(s): A41.9 - SEPSIS, UNSPECIFIED ORGANISM Qualifiers: Sepsis type: sepsis due to unspecified organism Sepsis acute organ dysfunction status: unspecified Qualified Code(s): A41.9 - Sepsis, unspecified organism (2) Influenza B Code(s): J10.1 - FLU DUE TO OTH IDENT INFLUENZA VIRUS W OTH RESP MANIFEST (3) UTI (urinary tract infection) Code(s): N39.0 - URINARY TRACT INFECTION, SITE NOT SPECIFIED Qualifiers: Urinary tract infection type: site unspecified Hematuria presence: with hematuria Qualified Code(s): N39.0 - Urinary tract infection, site not specified; R31.9 - Hematuria, unspecified (4) Degeneration disease of medial meniscus Code(s): M23.305 - OTHER MENISCUS DERANGEMENTS, UNSP MEDIAL MENISCUS, UNSP KNEE (5) DVT prophylaxis Code(s): Z29.9 - ENCOUNTER FOR PROPHYLACTIC MEASURES, UNSPECIFIED (6) Prophylactic measure Code(s): Z29.9 - ENCOUNTER FOR PROPHYLACTIC MEASURES, UNSPECIFIED plan abx consider urology consult close wacth tamiflu hydration rest as per the team
[2019-05-29 12:56] LABS: BASO % 0.3 % (0-2.0); HEMATOCRIT 38.2 % (35.4-49); HEMOGLOBIN 13.1 GM/dL (11.7-16.9); LYMPH % 8.4 % (8-40); MCH 30.3 pg (25.7-33.7); MCHC 34.2 g/dl (32.0-35.9); MEAN CELL VOLUME 88.6 fl (80-96); MEAN PLT VOLUME 9.8 fl (7.5-11.1); NEUT % 79.3 % (42.8-82.8); PLATELET COUNT 176 K/MM3 (134-434); RBC 4.32 M/mm3 (4.00-5.60); RDW 13.7 % (11.9-15.9); WHITE BLOOD COUNT 10.3 K/mm3 (4.0-10.0)
[2019-05-29 13:28] LABS: ALBUMIN 2.8 g/dl (3.4-5.0); BILIRUBIN,TOTAL 0.5 mg/dL (0.2-1); BLOOD UREA NITROGEN 8.2 mg/dL (7-18); CALCIUM 7.8 mg/dL (8.5-10.1); CREATININE 0.8 mg/dL (0.55-1.3); POTASSIUM 3.7 mmol/L (3.5-5.1); TOT PROT 6.7 g/dl (6.4-8.2)
[2019-05-29] MEDS ORDERED: BISACODYL 10 MG SUPP.RECT RC ONE (15:29)
--- NOTE | 2019-05-29 15:30 | PN ---
Physical Exam: SUBJECTIVE: Patient seen and examined at the bedside. states he feels constipated, otherwise, feels well. no further rigors. OBJECTIVE: Patient is a 54 year old male with a significant past medical history of hypertension, BPH who presents to the ED on 05/28/2019 with urinary frequency for two days, fever, chills and nausea/vomiting. Patient had multiple sick contact at home with fever and chills suspicious for the flu. He went to urgent care and was advised to go to the ED after he reported his symptoms. He was found to be positive for influenza and presents with an elevated WBC of 24.4. Noted to have a + UA. He is being admitted for urosepsis and +influenza B. Vital Signs Period Temp Pulse Resp BP Sys/Stapleton Pulse Ox Last 24 Hr 97.9 F-100.1 F 92-106 14-20 128-156/75-98 98-98 GENERAL: Awake, alert, and fully oriented, with rigors and general malaise. HEAD: Normal with no signs of trauma. EYES: Pupils equal, round and reactive to light, extraocular movements intact, sclera anicteric, conjunctiva clear. No lid lag. EARS, NOSE, THROAT: Ears normal, nares patent, oropharynx clear without exudates. Moist mucous membranes. NECK: Normal range of motion, supple without lymphadenopathy, JVD, or masses. LUNGS: Breath sounds equal, clear to auscultation bilaterally. No wheezes HEART: Regular rate and rhythm, ABDOMEN: Soft, nontender, not distended, normoactive bowel sounds, no guarding, no rebound, no masses. No hepatomegaly or splenomegaly. MUSCULOSKELETAL: Normal range of motion at all joints. No bony deformities or tenderness. No CVA tenderness. UPPER EXTREMITIES: No peripheral edema. LOWER EXTREMITIES: No peripheral edema. Laboratory Results - last 24 hr 05/29/19 05/29/19 12:24 12:24 WBC 10.3 H RBC 4.32 Hgb 13.1 Hct 38.2 MCV 88.6 MCH 30.3 MCHC 34.2 RDW 13.7 Plt Count 176 MPV 9.8 Absolute Neuts (auto) 8.2 H Neutrophils % 79.3 Lymphocytes % 8.4 Monocytes % 10.0 Eosinophils % 2.0 D Basophils % 0.3 Nucleated RBC % 0 Sodium 137 Potassium 3.7 Chloride 102 Carbon Dioxide 30 Anion Gap 5 L BUN 8.2 Creatinine 0.8 Est GFR (CKD-EPI)AfAm 116.56 Est GFR (CKD-EPI)NonAf 100.57 Random Glucose 128 H Calcium 7.8 L Total Bilirubin 0.5 AST 49 H ALT 52 Alkaline Phosphatase 64 Total Protein 6.7 Albumin 2.8 L Active Medications Generic Name Dose Route Start Last Admin Trade Name Freq PRN Reason Stop Dose Admin Acetaminophen 650 mg 05/27/19 16:11 05/29/19 04:24 Tylenol - PO 650 mg Q6H PRN Administration FEVER Amlodipine Besylate 5 mg 05/28/19 10:00 05/29/19 09:06 Norvasc - PO 5 mg DAILY ROSA Administration Atorvastatin Calcium 10 mg 05/27/19 22:00 05/28/19 22:20 Lipitor - PO 10 mg HS ROSA Administration Bisacodyl 10 mg 05/29/19 15:29 Dulcolax Suppository - NV 05/29/19 15:30 ONCE ONE Heparin Sodium (Porcine) 5,000 unit 05/28/19 22:00 05/29/19 09:07 Heparin - SQ 5,000 unit BID ROSA Administration Piperacillin Sod/Tazobactam 50 mls @ 100 mls/hr 05/28/19 13:15 05/29/19 10:27 Sod 3.375 gm/ Dextrose IVPB 100 mls/hr Q8H-IV ROSA Administration Protocol Losartan Potassium 25 mg 05/28/19 10:00 05/29/19 09:06 Cozaar - PO 25 mg DAILY ROSA Administration Ondansetron HCl 4 mg 05/27/19 18:18 05/27/19 18:30 Zofran Injection IVPUSH 4 mg Q6H PRN Administration NAUSEA Oseltamivir Phosphate 75 mg 05/27/19 22:00 05/29/19 09:06 Tamiflu - PO 06/01/19 21:59 75 mg BID ROSA Administration Pantoprazole Sodium 40 mg 05/27/19 18:30 05/29/19 09:10 Protonix Iv IVPUSH 40 mg DAILY ROSA Administration Tamsulosin HCl 0.4 mg 05/28/19 08:30 05/29/19 09:06 Flomax - PO 0.4 mg DAILY@0830 ROSA Administration ASSESSMENT/PLAN: Problem List - Problems (1) Sepsis Assessment/Plan: patient presents with fever 103, elevated WBC and rigors. His mentation is at baseline and his fever curve is now improving. rigors have resolved. Blood cultures negative, urine cultures + for ecoli. Lactic acid within normal limits. Chest xray negative for acute process Seen by ID and started on zosyn pending sensitivities. likely switch to oral in am. Code(s): A41.9 - SEPSIS, UNSPECIFIED ORGANISM Qualifiers: Sepsis type: sepsis due to unspecified organism Sepsis acute organ dysfunction status: unspecified Qualified Code(s): A41.9 - Sepsis, unspecified organism (2) Influenza B Assessment/Plan: started on tamiflu isolation precautions Code(s): J10.1 - FLU DUE TO OTH IDENT INFLUENZA VIRUS W OTH RESP MANIFEST (3) UTI (urinary tract infection) Assessment/Plan: + UA, pending urine cultures on zosyn for leukotytosis Code(s): N39.0 - URINARY TRACT INFECTION, SITE NOT SPECIFIED Qualifiers: Urinary tract infection type: site unspecified Hematuria presence: with hematuria Qualified Code(s): N39.0 - Urinary tract infection, site not specified; R31.9 - Hematuria, unspecified (4) Degeneration disease of medial meniscus Code(s): M23.305 - OTHER MENISCUS DERANGEMENTS, UNSP MEDIAL MENISCUS, UNSP KNEE (5) DVT prophylaxis Assessment/Plan: heparin bid full code Code(s): Z29.9 - ENCOUNTER FOR PROPHYLACTIC MEASURES, UNSPECIFIED (6) Prophylactic measure Assessment/Plan: fen low salt diet heparin bid full code Code(s): Z29.9 - ENCOUNTER FOR PROPHYLACTIC MEASURES, UNSPECIFIED Visit type - Emergency Visit Emergency Visit: Yes ED Registration Date: 05/27/19 Care time: The patient presented to the Emergency Department on the above date and was hospitalized for further evaluation of their emergent condition. - New Patient This patient is new to me today: No - Critical Care Critical Care patient: No - Discharge Referral Referred to [facility] No
[2019-05-29] MEDS: ATORVASTATIN CA 10 MG TABLET (FP) PO SCH (22:09)
[2019-05-30] MEDS ORDERED: DEXTROSE 5%-WATER - 50 ML IVPB ONE ×3 (02:18→17:29)
[2019-05-30] MEDS ORDERED: PIPERACILLIN/TAZOBACTAM 3.375 GM VIAL IVPB ONE ×3 (02:18→17:29)
[2019-05-30] MEDS: PIPERACILLIN/TAZOB 3.375 GM 3.375 GM in DEXTROSE 5%-WATER - 50 ML IVPB SCH ×3 (02:21→17:48)
[2019-05-30] MEDS: ACETAMINOPHEN 325 MG TABLET (FP) PO PRN (06:28)
[2019-05-30] MEDS: LOSARTAN POTASSIUM 25 MG TABLET PO SCH (10:00)
[2019-05-30] MEDS: HEPARIN NA (PORCINE) 5,000 UNITS/ML 1ML VIAL SQ SCH ×2 (10:00→21:59)
[2019-05-30] MEDS: amLODIPine BESYLATE 5 MG TABLET (FP) PO SCH (10:00)
[2019-05-30] MEDS: PANTOPRAZOLE SODIUM 40 MG VIAL IVPUSH SCH (10:01)
[2019-05-30] MEDS: OSELTAMIVIR PHOSPHATE 75 MG CAPSULE PO SCH ×2 (10:02→22:00)
[2019-05-30] MEDS: TAMSULOSIN HCL 0.4 MG CAP PO SCH (10:03)
--- NOTE | 2019-05-30 15:20 | CON.GU ---
Consult Consult Specialty:: Referred by:: Medicine Reason for Consultation:: incontinence, urosepsis - History of Present Illness Chief Complaint: incontinence, urosepsis History of Present Illness: 54 year old man admitted with incontinence, presumed UTI and leukocytosis. He reports that until recently he was voiding normally but has had UTIs in the past. US showed normal kidneys with no obstruction. His WBC is coming down on IV abx - History Source History Provided By: Patient Limitations to Obtaining History: No Limitations - Past Medical History Renal/: Yes: UTI - Alcohol/Substance Use Hx Alcohol Use: No - Smoking History Smoking history: Never smoked Home Medications - Allergies Allergies/Adverse Reactions: Allergies Allergy/AdvReac Type Severity Reaction Status Date / Time No Known Drug Allergies Allergy Verified 05/27/19 11:54 shrimp Allergy Verified 05/27/19 11:54 - Home Medications Home Medications: Ambulatory Orders Amlodipine Besylate 5 mg PO DAILY 11/28/17 Losartan Potassium 25 mg PO DAILY 11/28/17 Simvastatin 20 mg PO DAILY 11/28/17 Tamsulosin HCl 0.4 mg PO DAILY 11/28/17 Review of Systems - Review of Systems Genitourinary: reports: Burning, Frequency, Incontinence Physical Exam- Vital Signs: Vital Signs Temperature 98.1 F 05/30/19 14:50 Pulse Rate 92 H 05/30/19 14:50 Respiratory Rate 20 05/30/19 14:50 Blood Pressure 141/92 05/30/19 14:50 O2 Sat by Pulse Oximetry (%) 98 05/30/19 09:00 Renal/: Yes: Incontinence. No: CVA Tenderness - Left, CVA Tenderness - Right , Brunner Present, Hematuria Labs: CBC, BMP 05/29/19 12:24 05/29/19 12:24 Imaging - Results Ultrasound: Report Reviewed Problem List - Problems (1) Incontinence Assessment/Plan: uncomplicated UTI. cont abx. add flomax. follow up in office Code(s): R32 - UNSPECIFIED URINARY INCONTINENCE (2) UTI (urinary tract infection) Code(s): N39.0 - URINARY TRACT INFECTION, SITE NOT SPECIFIED Qualifiers: Urinary tract infection type: site unspecified Hematuria presence: with hematuria Qualified Code(s): N39.0 - Urinary tract infection, site not specified; R31.9 - Hematuria, unspecified
[2019-05-30] MEDS ORDERED: ACETAMINOPHEN 325 MG TABLET (FP) PO PRN (15:30)
[2019-05-30 16:36] LABS: BASO % 0.6 % (0-2.0); EOS % 4.4 % (0-4.5); HEMATOCRIT 39.2 % (35.4-49); HEMOGLOBIN 13.1 GM/dL (11.7-16.9); LYMPH % 20.1 % (8-40); MCH 29.5 pg (25.7-33.7); MCHC 33.4 g/dl (32.0-35.9); MEAN CELL VOLUME 88.4 fl (80-96); MEAN PLT VOLUME 9.6 fl (7.5-11.1); MONO % 16.9 % (3.8-10.2); PLATELET COUNT 207 K/MM3 (134-434); RBC 4.44 M/mm3 (4.00-5.60); RDW 13.8 % (11.9-15.9); WHITE BLOOD COUNT 6.7 K/mm3 (4.0-10.0)
[2019-05-30 17:03] LABS: ALBUMIN 2.8 g/dl (3.4-5.0); BILIRUBIN,TOTAL 0.3 mg/dL (0.2-1); BLOOD UREA NITROGEN 8.8 mg/dL (7-18); CALCIUM 7.8 mg/dL (8.5-10.1); CREATININE 0.7 mg/dL (0.55-1.3); MAGNESIUM 2.2 mg/dL (1.8-2.4); POTASSIUM 3.6 mmol/L (3.5-5.1); TOT PROT 6.5 g/dl (6.4-8.2)
[2019-05-30 17:14] LABS: PLATELET ESTIMATE ADEQUATE
--- NOTE | 2019-05-30 17:14 | PN ---
Physical Exam: SUBJECTIVE: Patient seen and examined at the bedside. Having a headache, otherwise, improved. OBJECTIVE: Patient is a 54 year old male with a significant past medical history of hypertension, BPH who presents to the ED on 05/28/2019 with urinary frequency for two days, fever, chills and nausea/vomiting. Patient had multiple sick contact at home with fever and chills suspicious for the flu. He went to urgent care and was advised to go to the ED after he reported his symptoms. He was found to be positive for influenza and presents with an elevated WBC of 24.4. Noted to have a + UA. He is being admitted for urosepsis and +influenza B. febrile this am. 100.9 Vital Signs Period Temp Pulse Resp BP Sys/Stapleton Pulse Ox Last 24 Hr 98.1 F-100.9 F 92-120 18-20 141-156/92-98 98 GENERAL: Awake, alert, and fully oriented, with rigors and general malaise. HEAD: Normal with no signs of trauma. EYES: Pupils equal, round and reactive to light, extraocular movements intact, sclera anicteric, conjunctiva clear. No lid lag. EARS, NOSE, THROAT: Ears normal, nares patent, oropharynx clear without exudates. Moist mucous membranes. NECK: Normal range of motion, supple without lymphadenopathy, JVD, or masses. LUNGS: Breath sounds equal, clear to auscultation bilaterally. No wheezes HEART: Regular rate and rhythm, ABDOMEN: Soft, nontender, not distended, normoactive bowel sounds, no guarding, no rebound, no masses. No hepatomegaly or splenomegaly. MUSCULOSKELETAL: Normal range of motion at all joints. No bony deformities or tenderness. No CVA tenderness. UPPER EXTREMITIES: No peripheral edema. LOWER EXTREMITIES: No peripheral edema. Laboratory Results - last 24 hr 05/30/19 05/30/19 15:40 15:40 WBC 6.7 RBC 4.44 Hgb 13.1 Hct 39.2 MCV 88.4 MCH 29.5 MCHC 33.4 RDW 13.8 Plt Count 207 MPV 9.6 Absolute Neuts (auto) 3.9 Neutrophils % 58.0 D Lymphocytes % 20.1 D Monocytes % 16.9 H Eosinophils % 4.4 D Basophils % 0.6 Nucleated RBC % 0 Sodium 135 L Potassium 3.6 Chloride 100 Carbon Dioxide 33 H Anion Gap 3 L BUN 8.8 Creatinine 0.7 Est GFR (CKD-EPI)AfAm 123.13 Est GFR (CKD-EPI)NonAf 106.24 Random Glucose 118 H Calcium 7.8 L Magnesium 2.2 Total Bilirubin 0.3 AST 55 H ALT 79 H Alkaline Phosphatase 69 Total Protein 6.5 Albumin 2.8 L Active Medications Generic Name Dose Route Start Last Admin Trade Name Freq PRN Reason Stop Dose Admin Acetaminophen 650 mg 05/30/19 15:30 05/30/19 16:00 Tylenol - PO 650 mg Q6H PRN Administration Fever/headache Amlodipine Besylate 5 mg 05/28/19 10:00 05/30/19 10:00 Norvasc - PO 5 mg DAILY ROSA Administration Atorvastatin Calcium 10 mg 05/27/19 22:00 05/29/19 22:09 Lipitor - PO 10 mg HS ROSA Administration Heparin Sodium (Porcine) 5,000 unit 05/28/19 22:00 05/30/19 10:00 Heparin - SQ 5,000 unit BID ROSA Administration Piperacillin Sod/Tazobactam 50 mls @ 100 mls/hr 05/28/19 13:15 05/30/19 10:02 Sod 3.375 gm/ Dextrose IVPB 100 mls/hr Q8H-IV ROSA Administration Protocol Losartan Potassium 25 mg 05/28/19 10:00 05/30/19 10:00 Cozaar - PO 25 mg DAILY ROSA Administration Ondansetron HCl 4 mg 05/27/19 18:18 05/27/19 18:30 Zofran Injection IVPUSH 4 mg Q6H PRN Administration NAUSEA Oseltamivir Phosphate 75 mg 05/27/19 22:00 05/30/19 10:02 Tamiflu - PO 06/01/19 21:59 75 mg BID ROSA Administration Pantoprazole Sodium 40 mg 05/27/19 18:30 05/30/19 10:01 Protonix Iv IVPUSH 40 mg DAILY ROSA Administration Tamsulosin HCl 0.4 mg 05/28/19 08:30 05/30/19 10:03 Flomax - PO 0.4 mg DAILY@0830 ROSA Administration ASSESSMENT/PLAN: Problem List - Problems (1) Sepsis Assessment/Plan: patient presents with fever 103, elevated WBC and rigors. His mentation is at baseline and his fever curve is now improving. rigors have resolved. Blood cultures negative, urine cultures + for ecoli. Lactic acid within normal limits. Chest xray negative for acute process Seen by ID and started on zosyn pending sensitivities. likely switch to oral in am. Code(s): A41.9 - SEPSIS, UNSPECIFIED ORGANISM Qualifiers: Sepsis type: sepsis due to unspecified organism Sepsis acute organ dysfunction status: unspecified Qualified Code(s): A41.9 - Sepsis, unspecified organism (2) Influenza B Assessment/Plan: started on tamiflu isolation precautions Code(s): J10.1 - FLU DUE TO OTH IDENT INFLUENZA VIRUS W OTH RESP MANIFEST (3) UTI (urinary tract infection) Assessment/Plan: + UA, pending urine cultures on zosyn for leukotytosis Code(s): N39.0 - URINARY TRACT INFECTION, SITE NOT SPECIFIED Qualifiers: Urinary tract infection type: site unspecified Hematuria presence: with hematuria Qualified Code(s): N39.0 - Urinary tract infection, site not specified; R31.9 - Hematuria, unspecified (4) Degeneration disease of medial meniscus Code(s): M23.305 - OTHER MENISCUS DERANGEMENTS, UNSP MEDIAL MENISCUS, UNSP KNEE (5) DVT prophylaxis Assessment/Plan: heparin bid full code Code(s): Z29.9 - ENCOUNTER FOR PROPHYLACTIC MEASURES, UNSPECIFIED (6) Prophylactic measure Assessment/Plan: fen low salt diet heparin bid full code Code(s): Z29.9 - ENCOUNTER FOR PROPHYLACTIC MEASURES, UNSPECIFIED Visit type - Emergency Visit Emergency Visit: Yes ED Registration Date: 05/27/19 Care time: The patient presented to the Emergency Department on the above date and was hospitalized for further evaluation of their emergent condition. - New Patient This patient is new to me today: No - Critical Care Critical Care patient: No - Discharge Referral Referred to [facility] No
[2019-05-30] MEDS ORDERED: PT OWN MED DRAWER 7, Y5N ONE (21:56)
[2019-05-30] MEDS: ATORVASTATIN CA 10 MG TABLET (FP) PO SCH (21:59)
[2019-05-31] MEDS ORDERED: PIPERACILLIN/TAZOBACTAM 3.375 GM VIAL IVPB ONE ×2 (02:22→09:53)
[2019-05-31] MEDS ORDERED: DEXTROSE 5%-WATER - 50 ML IVPB ONE ×2 (02:23→09:53)
[2019-05-31] MEDS: PIPERACILLIN/TAZOB 3.375 GM 3.375 GM in DEXTROSE 5%-WATER - 50 ML IVPB SCH ×2 (02:27→09:58)
[2019-05-31 08:03] LABS: BASO % 0.7 % (0-2.0); EOS % 5.5 % (0-4.5); HEMOGLOBIN 13.6 GM/dL (11.7-16.9); LYMPH % 21.1 % (8-40); MCH 29.7 pg (25.7-33.7); MCHC 33.9 g/dl (32.0-35.9); MEAN CELL VOLUME 87.6 fl (80-96); MEAN PLT VOLUME 9.1 fl (7.5-11.1); MONO % 17.6 % (3.8-10.2); NEUT % 55.1 % (42.8-82.8); PLATELET COUNT 228 K/MM3 (134-434); RBC 4.57 M/mm3 (4.00-5.60); RDW 13.7 % (11.9-15.9); WHITE BLOOD COUNT 9.2 K/mm3 (4.0-10.0)
[2019-05-31 08:31] LABS: ALBUMIN 2.9 g/dl (3.4-5.0); BILIRUBIN,TOTAL 0.4 mg/dL (0.2-1); BLOOD UREA NITROGEN 7.2 mg/dL (7-18); CALCIUM 8.3 mg/dL (8.5-10.1); CREATININE 0.8 mg/dL (0.55-1.3); POTASSIUM 3.8 mmol/L (3.5-5.1)
[2019-05-31] MEDS: LOSARTAN POTASSIUM 25 MG TABLET PO SCH (09:57)
[2019-05-31] MEDS: amLODIPine BESYLATE 5 MG TABLET (FP) PO SCH (09:57)
[2019-05-31] MEDS: TAMSULOSIN HCL 0.4 MG CAP PO SCH (09:57)
[2019-05-31] MEDS: PANTOPRAZOLE SODIUM 40 MG VIAL IVPUSH SCH (09:57)
[2019-05-31] MEDS: HEPARIN NA (PORCINE) 5,000 UNITS/ML 1ML VIAL SQ SCH (09:57)
[2019-05-31] MEDS: OSELTAMIVIR PHOSPHATE 75 MG CAPSULE PO SCH (09:58)
[2019-05-31 10:05] VITALS: BP 157/99; PULSE 80; TEMP 98.1
--- NOTE | 2019-05-31 12:21 | DS ---
Physical Exam: SUBJECTIVE: Patient seen and examined at the bedside. denies fevers, denies shortness of breath. feels better and agrees to follow up with urology as an outpatient. in room, agree to discharge home. OBJECTIVE: Patient is a 54 year old male with a significant past medical history of hypertension, BPH who presents to the ED on 05/28/2019 with urinary frequency for two days, fever, chills and nausea/vomiting. Patient also had multiple sick contact at home with fever and chills suspicious for the flu. He presents with an elevated WBC of 24.4 with fever, chills and rigors and was noted to have a + UA. He is being admitted for urosepsis and emperically started on Zosyn/ Ceftriaxone pending cultures. Period Temp Pulse Resp BP Sys/[place] Pulse Ox Last 24 Hr 97.7 F-98.4 F 79-102 19-20 138-157/75-99 97-98 PHYSICAL EXAM GENERAL: Awake, alert, and fully oriented, in no acute distress HEAD: Normal with no signs of trauma. EYES: Pupils equal, round and reactive to light, extraocular movements intact, sclera anicteric, conjunctiva clear. No lid lag. EARS, NOSE, THROAT: Ears normal, nares patent, oropharynx clear without exudates. Moist mucous membranes. NECK: Normal range of motion, supple without lymphadenopathy, JVD, or masses. LUNGS: Breath sounds equal, clear to auscultation bilaterally. No wheezes HEART: Regular rate and rhythm, ABDOMEN: Soft, nontender, not distended, normoactive bowel sounds, no guarding, no rebound, no masses. No hepatomegaly or splenomegaly. MUSCULOSKELETAL: Normal range of motion at all joints. No bony deformities or tenderness. No CVA tenderness. UPPER EXTREMITIES: No peripheral edema. LOWER EXTREMITIES: No peripheral edema. LABS Laboratory Results - last 24 hr 05/30/19 05/30/19 05/31/19 15:40 15:40 07:35 WBC 6.7 9.2 RBC 4.44 4.57 Hgb 13.1 13.6 Hct 39.2 40.0 MCV 88.4 87.6 MCH 29.5 29.7 MCHC 33.4 33.9 RDW 13.8 13.7 Plt Count 207 228 MPV 9.6 9.1 Absolute Neuts (auto) 3.9 5.1 Neutrophils % 58.0 D 55.1 Neutrophils % (Manual) 43.0 D Band Neutrophils % 17.0 Lymphocytes % 20.1 D 21.1 Lymphocytes % (Manual) 25.0 D Monocytes % 16.9 H 17.6 H Monocytes % (Manual) 10 Eosinophils % 4.4 D 5.5 H Eosinophils % (Manual) 5.0 H D Basophils % 0.6 0.7 Basophils % (Manual) 0.0 Nucleated RBC % 0 0 Platelet Estimate Adequate Sodium 135 L Potassium 3.6 Chloride 100 Carbon Dioxide 33 H Anion Gap 3 L BUN 8.8 Creatinine 0.7 Est GFR (CKD-EPI)AfAm 123.13 Est GFR (CKD-EPI)NonAf 106.24 Random Glucose 118 H Calcium 7.8 L Magnesium 2.2 Total Bilirubin 0.3 AST 55 H ALT 79 H Alkaline Phosphatase 69 Total Protein 6.5 Albumin 2.8 L 05/31/19 07:40 WBC RBC Hgb Hct MCV MCH MCHC RDW Plt Count MPV Absolute Neuts (auto) Neutrophils % Neutrophils % (Manual) Band Neutrophils % Lymphocytes % Lymphocytes % (Manual) Monocytes % Monocytes % (Manual) Eosinophils % Eosinophils % (Manual) Basophils % Basophils % (Manual) Nucleated RBC % Platelet Estimate Sodium 138 Potassium 3.8 Chloride 102 Carbon Dioxide 30 Anion Gap 6 L BUN 7.2 Creatinine 0.8 Est GFR (CKD-EPI)AfAm 116.56 Est GFR (CKD-EPI)NonAf 100.57 Random Glucose 103 Calcium 8.3 L Magnesium Total Bilirubin 0.4 AST 45 H ALT 87 H Alkaline Phosphatase 67 Total Protein 7.0 Albumin 2.9 L HOSPITAL COURSE: Date of Admission:05/27/19 Date of Discharge: 05/31/19 Minutes to complete discharge: 40 Discharge Summary Problems reviewed: Yes Reason For Visit: UTI SEPSIS INFLUENZA VIRUS TYPE B Current Active Problems DVT prophylaxis (Acute) Incontinence (Acute) Influenza B (Acute) Prophylactic measure (Acute) Sepsis (Acute) UTI (urinary tract infection) (Acute) Condition: Stable - Instructions Diet, Activity, Other Instructions: Mr. Gordon: You were admitted to [facility] on 05/27/2019 for urinary tract infection and influenza B. During your hospital stay you were seen by infectious disease specialist and urologist. Here are our discharge instructions: Urinary Tract Infection: You were treated for IV antibiotics during your stay and evaluated by the urologist who recommended that you call his office for an appointment. Continue taking Augmentin 875m TWICE per day for 5 more days (you can start taking it tonight). Influenza B: You were started on TAMIFLU for 5 days, you will complete TAMIFLU tomorrow. Take one tablet of Tamiflu tonight at 8pm. Take one tablet tomorrow at 8am and then take one tablet at 8pm tomorrow to complete Tamflu. High Blood Pressure: We have increased your Losartan from 25mg to 50mg ONCE per day. Please follow up with your primary care doctor for blood pressure check. Thank you for allowing us to care for you. Referrals: Jose Maria Gomez [Primary Care Provider] - Juan Diego Hagen MD [Staff Physician] - Disposition: HOME - Home Medications Comprehensive Discharge Medication List: Ambulatory Orders Amlodipine Besylate 5 mg PO DAILY 11/28/17 Simvastatin 20 mg PO DAILY 11/28/17 Tamsulosin HCl 0.4 mg PO DAILY 11/28/17 Amoxicillin/Potassium Clav [Augmentin 875-125 Tablet] 1 each PO BID #10 tablet 05/31/19 Atorvastatin Ca [Lipitor] 10 mg PO HS tablet 05/31/19 Losartan Potassium 50 mg PO DAILY #60 tablet 05/31/19 Oseltamivir Phosphate [Tamiflu -] 75 mg PO BID #3 capsule 05/31/19 Problem List - Problems (1) Sepsis Assessment/Plan: resolved. patient to complete oral antibiotics at home. augmentin 875 mg BID x 5 days Code(s): A41.9 - SEPSIS, UNSPECIFIED ORGANISM Qualifiers: Sepsis type: sepsis due to unspecified organism Sepsis acute organ dysfunction status: unspecified Qualified Code(s): A41.9 - Sepsis, unspecified organism (2) Influenza B Assessment/Plan: Patient to complete tamiflu tomorrow Code(s): J10.1 - FLU DUE TO OTH IDENT INFLUENZA VIRUS W OTH RESP MANIFEST (3) UTI (urinary tract infection) Assessment/Plan: + UA, Urine culture with ecoli. Treated with Zosyn/Ceftriaxone, converted to Augmentin 875mg x 5 days Code(s): N39.0 - URINARY TRACT INFECTION, SITE NOT SPECIFIED Qualifiers: Urinary tract infection type: site unspecified Hematuria presence: with hematuria Qualified Code(s): N39.0 - Urinary tract infection, site not specified; R31.9 - Hematuria, unspecified (4) Degeneration disease of medial meniscus Code(s): M23.305 - OTHER MENISCUS DERANGEMENTS, UNSP MEDIAL MENISCUS, UNSP KNEE (5) Hypertension Assessment/Plan: losartan increased to 50mg daily. on amlodopine patient to see his PCP for monitoring Code(s): I10 - ESSENTIAL (PRIMARY) HYPERTENSION (6) Prophylactic measure Assessment/Plan: discharge home Code(s): Z29.9 - ENCOUNTER FOR PROPHYLACTIC MEASURES, UNSPECIFIED (7) DVT prophylaxis Assessment/Plan: Code(s): Z29.9 - ENCOUNTER FOR PROPHYLACTIC MEASURES, UNSPECIFIED This patient is new to me today: No Emergency Visit: Yes ED Registration Date: 05/27/19 Care time: The patient presented to the Emergency Department on the above date and was hospitalized for further evaluation of their emergent condition. Critical Care patient: No - Discharge Referral Referred to [facility] Med [facility].: No
[2019-06-01] MEDS ORDERED: LOSARTAN POTASSIUM 25 MG TABLET PO SCH (10:00)
--- NOTE | 2019-06-07 08:56 | PN ---
Progress Note, Physician History of Present Illness: patient improving gu to see the patient fevers better - Objective Vital Signs: Vital Signs Temperature 98.1 F 05/31/19 10:00 Pulse Rate 80 05/31/19 10:00 Respiratory Rate 05/31/19 10:00 Blood Pressure 157/99 05/31/19 10:00 O2 Sat by Pulse Oximetry (%) 97 05/31/19 09:00 Constitutional: Yes: No Distress, Calm Cardiovascular: Yes: Regular Rate and Rhythm Respiratory: Yes: Regular, CTA Bilaterally Gastrointestinal: Yes: Normal Bowel Sounds, Soft Musculoskeletal: Yes: WNL Extremities: Yes: WNL Neurological: Yes: Alert, Oriented Psychiatric: Yes: Alert, Oriented Labs: CBC, BMP 05/31/19 07:35 05/31/19 07:40 INR, PTT INR 1.33 (0.83-1.09) H 05/28/19 10:34 Assessment/Plan Problem List - Problem (1) Sepsis Code(s): A41.9 - SEPSIS, UNSPECIFIED ORGANISM Qualifiers: Sepsis type: sepsis due to unspecified organism Sepsis acute organ dysfunction status: unspecified Qualified Code(s): A41.9 - Sepsis, unspecified organism (2) Influenza B Code(s): J10.1 - FLU DUE TO OTH IDENT INFLUENZA VIRUS W OTH RESP MANIFEST (3) UTI (urinary tract infection) Code(s): N39.0 - URINARY TRACT INFECTION, SITE NOT SPECIFIED Qualifiers: Urinary tract infection type: site unspecified Hematuria presence: with hematuria Qualified Code(s): N39.0 - Urinary tract infection, site not specified; R31.9 - Hematuria, unspecified (4) Degeneration disease of medial meniscus Code(s): M23.305 - OTHER MENISCUS DERANGEMENTS, UNSP MEDIAL MENISCUS, UNSP KNEE (5) DVT prophylaxis Code(s): Z29.9 - ENCOUNTER FOR PROPHYLACTIC MEASURES, UNSPECIFIED (6) Prophylactic measure Code(s): Z29.9 - ENCOUNTER FOR PROPHYLACTIC MEASURES, UNSPECIFIED plan abx r urology consult close wacth tamiflu hydration rest as per the team
== END 2019-05-31 14:14 | disposition home or self-care (01) | DRG 720 ==
LOC: JER 11:43 → JERBED 14:23 → J6S 05-28 15:54
PROVIDERS: ADMIT Internal Medicine; ATTEND Nurse Practitioner Family
DX: A41.89 Other specified sepsis (principal); J11.1 Influenza due to unidentified influenza virus with other respiratory manifestations; R31.9 Hematuria, unspecified; D72.829 Elevated white blood cell count, unspecified; N40.1 Benign prostatic hyperplasia with lower urinary tract symptoms; N39.0 Urinary tract infection, site not specified; I10 Essential (primary) hypertension; B96.20 Unspecified Escherichia coli [E. coli] as the cause of diseases classified elsewhere; R00.0 Tachycardia, unspecified
CPT/HCPCS: 36415; 71045-TC-FY; 76775-TC; 80053; 81003; 82803; 83605; 83735; 84484; 85025; 85027; 85610; 87040; 87086; 87186; 87804; 93005; 93010; 99285-25; J0131; J1644; J7030